=== PATIENT | female | born 1945 | race Caucasian/White ===

== ENCOUNTER → 2020-12-02 16:00 | Outpatient (CLI) | payer MEDICARE, OTHER, MEDICAID, SELFPAY ==
--- NOTE | ~2020-12-02 | XR_ITS ---
XR ankle LT 2V DATE: 12/02/2020 16:54 INDICATION: Left ankle pain TECHNIQUE: AP and crosstable lateral views COMPARISON: None FINDINGS: There is a plate and screws along the distal fibular shaft and lateral malleolus as well as a screw extending through the long axis of the medial malleolus into the distal tibial metaphysis. No recent fracture or dislocation. Ankle mortise appears intact. Generalized soft tissue swelling. Plantar and posterior calcaneal enthesopathy. IMPRESSION: Generalized soft tissue swelling. Status post ORIF old medial and lateral malleolar fractures Calcaneal enthesopathy Reviewed, dictated and finalized at location A.
--- NOTE | ~2020-12-02 | XR_ITS ---
XR knee RT 2V DATE: 12/02/2020 16:54 INDICATION: Right knee pain TECHNIQUE: AP and crosstable lateral views of right knee COMPARISON: None FINDINGS: Status post right total knee arthroplasty with patellar resurfacing. No fracture or dislocation or joint effusion. There is osteopenia. No periosteal reaction or bone guru truction. IMPRESSION: Status post right total knee arthroplasty with patellar resurfacing Reviewed, dictated and finalized at location A.
--- NOTE | ~2020-12-02 | XR_ITS ---
XR cervical spine 4-5V DATE: 12/02/2020 16:54 INDICATION: Neck pain TECHNIQUE: AP, open-mouth, lateral, swimmer's and flexion and extension lateral views COMPARISON: None FINDINGS: There is prominent diffuse osteopenia. There is mild degenerative disc disease at C4-5. There is severe degenerative disc disease at C5-6, moderately severe degenerative disc disease and mi ld anterior subluxation at C6-7. There is very prominent degenerative change at the apophyseal and uncovertebral joints throughout the cervical spine. No cervical instability is evident. No fracture or dislocation or locked facet or prevertebral soft t issue swelling. IMPRESSION: Prominent osteopenia Cervical prominent spondylosis Reviewed, dictated and finalized at location A.
--- NOTE | ~2020-12-02 | XR_ITS ---
XR knee LT 2V DATE: 12/02/2020 16:54 INDICATION: Left knee pain TECHNIQUE: AP and crosstable lateral views COMPARISON: None FINDINGS: There is diffuse osteopenia. No fracture or dislocation, periosteal reaction or bone destruction, radiopaque intra-articular loose body or chondrocalcinosis. Small knee joint effusion is suggested. There is tricompartment osteoarthritis, most severe at the medial compartment with severe joint space narrowing and very prominent particular spurring. Lateral compartment joint space is relatively pres erved, with mild periarticular spurring. There is mild periarticular spurring at the patellofemoral j oint. 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 IMPRESSION: Tricompartment osteoarthritis, particularly severe at the medial co mpartment Diffuse osteopenia Possible small joint effusion
== END ==
PROVIDERS: PCP Internal Medicine; Visit Provider Nurse Practitioner Family
DX: M25.561 Pain in right knee (principal); M85.88 Other specified disorders of bone density and structure, other site; M17.12 Unilateral primary osteoarthritis, left knee; M77.32 Calcaneal spur, left foot; M79.89 Other specified soft tissue disorders
CPT/HCPCS: 72050; 73560; 73600

== ENCOUNTER 2022-03-23 17:03 | Outpatient (NON) | payer MEDICARE, SELFPAY ==
[2022-03-23 17:52] LABS: Basophils Absolute Auto 0.03 K/mm3 (0.00-0.10); Basophils Percent Auto 0.4 % (0.0-1.0); Eosinophils Absolute Auto 0.06 K/mm3 (0.02-0.50); Eosinophils Percent Auto 0.8 % (1.0-6.0); Hematocrit 33.9 % (35.0-42.0); Hemoglobin 11.1 g/dL (11.7-13.8); Immature Granulocyte Absolute 0.07 K/mm3 (0.00-0.00); Lymphocytes Absolute Auto 0.42 K/mm3 (1.10-4.50); Lymphocytes Percent Auto 5.9 % (18.0-42.0); Mean Corpuscular HGB Conc 32.7 g/dL (32.0-36.0); Mean Corpuscular Hemoglobin 29.1 pg (27.0-31.0); Mean Corpuscular Volume 88.7 fL (78.0-102.0); Mean Platelet Volume 11.2 fl (9.2-11.8); Monocytes Absolute Auto 0.48 K/mm3 (0.10-0.90); Monocytes Percent Auto 6.8 % (2.0-11.0); Neutrophils Percent Auto 85.1 % (50.0-70.0); Platelet Count Result 206 K/mm3 (150-420); Red Blood Count 3.82 M/mm3 (4.20-5.40); Red Cell Distribution Width 14.6 % (11.6-14.4); White Blood Count 7.1 K/mm3 (4.8-10.8)
[2022-03-23 17:58] LABS: Creatinine Urine 105.49 mg/dL (40-278); MALB Creatinine Ratio 42.5 mg/g (0-30); Microalbumin Urine Random 44.9 mg/L
[2022-03-23 18:12] LABS: Hemoglobin A1C 6.5 % (<5.7)
[2022-03-23 18:20] LABS: Alanine Aminotransferase 13 U/L (14-59); Albumin Level 3.3 g/dL (3.4-5.0); Alkaline Phosphatase 73 U/L (46-116); Anion Gap 7 mmol/L (8-16); Aspartate Amino Transferase 14 U/L (15-37); Bilirubin,Total 0.3 mg/dL (0.00-1.00); Blood Urea Nitrogen 11 mg/dL (7-18); Calcium 8.6 mg/dL (8.5-10.1); Carbon Dioxide 32 mmol/L (21-32); Chloride 91 mmol/L (98-108); Cholesterol 140 mg/dL (0-200); Estimated Glomerular Filt Rate > 60; Glucose 160 mg/dL (70-99); HDL Direct 84 mg/dL (40-60); LDL Cholesterol Calculated 40 mg/dL (<130); Osmolality Calculated 272 mOsm/kg (285-295); Sodium 130 mmol/L (136-145); Total Protein 6.7 g/dL (6.4-8.2); Triglycerides 80 mg/dL (0-150)
[2022-03-23 18:35] LABS: Thyroid Stimulating Hormone Reflex 1.86 u/IU/mL (0.36-3.74)
[2022-03-28 20:22] LABS: Vitamin D 25 Hydroxy 40 ng/mL (30-100)
== END 2022-03-23 17:04 | disposition home or self-care (01) ==
LOC: CHSLAB 17:11
PROVIDERS: Visit Provider Internal Medicine
DX: E78.5 Hyperlipidemia, unspecified (principal); E11.9 Type 2 diabetes mellitus without complications; E55.9 Vitamin D deficiency, unspecified
CPT/HCPCS: 36415; 80053; 80061; 82043; 82306; 83036; 84443; 85025

== ENCOUNTER 2022-04-24 16:06 | Outpatient (NON) | payer MEDICARE, SELFPAY ==
[2022-04-24 16:15] LABS: Basophils Absolute Auto 0.05 K/mm3 (0.00-0.10); Basophils Percent Auto 0.7 % (0.0-1.0); Eosinophils Absolute Auto 0.04 K/mm3 (0.02-0.50); Eosinophils Percent Auto 0.6 % (1.0-6.0); Hematocrit 37.1 % (35.0-42.0); Hemoglobin 11.8 g/dL (11.7-13.8); Immature Granulocyte Absolute 0.08 K/mm3 (0.00-0.00); Immature Granulocyte Percent A 1.2 % (0.0-0.0); Lymphocytes Absolute Auto 0.64 K/mm3 (1.10-4.50); Lymphocytes Percent Auto 9.3 % (18.0-42.0); Mean Corpuscular HGB Conc 31.8 g/dL (32.0-36.0); Mean Corpuscular Hemoglobin 28.7 pg (27.0-31.0); Mean Corpuscular Volume 90.3 fL (78.0-102.0); Mean Platelet Volume 10.4 fl (9.2-11.8); Monocytes Absolute Auto 0.44 K/mm3 (0.10-0.90); Monocytes Percent Auto 6.4 % (2.0-11.0); Neutrophils Absolute Auto 5.6 K/mm3 (1.7-7.2); Neutrophils Percent Auto 81.8 % (50.0-70.0); Platelet Count Result 246 K/mm3 (150-420); Red Blood Count 4.11 M/mm3 (4.20-5.40); Red Cell Distribution Width 13.6 % (11.6-14.4); White Blood Count 6.9 K/mm3 (4.8-10.8)
[2022-04-24 16:26] LABS: Alanine Aminotransferase 13 U/L (14-59); Albumin Level 3.7 g/dL (3.4-5.0); Alkaline Phosphatase 71 U/L (46-116); Anion Gap 9 mmol/L (8-16); Aspartate Amino Transferase 19 U/L (15-37); Bilirubin,Total 0.3 mg/dL (0.00-1.00); Blood Urea Nitrogen 13 mg/dL (7-18); Calcium 9.4 mg/dL (8.5-10.1); Carbon Dioxide 33 mmol/L (21-32); Chloride 94 mmol/L (98-108); Estimated Glomerular Filt Rate > 60; Glucose 134 mg/dL (70-99); Osmolality Calculated 284 mOsm/kg (285-295); Potassium 3.9 mmol/L (3.5-5.1); Sodium 136 mmol/L (136-145); Total Protein 7.4 g/dL (6.4-8.2)
== END 2022-04-24 16:07 | disposition home or self-care (01) ==
LOC: CHSLAB 16:09
PROVIDERS: Visit Provider Internal Medicine
DX: J96.21 Acute and chronic respiratory failure with hypoxia (principal); I13.0 Hypertensive heart and chronic kidney disease with heart failure and stage 1 through stage 4 chronic kidney disease, or unspecified chronic kidney disease; I50.33 Acute on chronic diastolic (congestive) heart failure; I50.20 Unspecified systolic (congestive) heart failure; D63.1 Anemia in chronic kidney disease; D50.9 Iron deficiency anemia, unspecified
CPT/HCPCS: 36415; 80053; 85025

== ENCOUNTER 2022-05-29 15:11 | Outpatient (NON) | payer MEDICARE, SELFPAY ==
[2022-05-29 15:27] LABS: Basophils Absolute Auto 0.02 K/mm3 (0.00-0.10); Basophils Percent Auto 0.3 % (0.0-1.0); Eosinophils Absolute Auto 0.19 K/mm3 (0.02-0.50); Eosinophils Percent Auto 2.5 % (1.0-6.0); Hematocrit 36.4 % (35.0-42.0); Hemoglobin 11.5 g/dL (11.7-13.8); Immature Granulocyte Percent A 1.3 % (0.0-0.0); Lymphocytes Absolute Auto 0.31 K/mm3 (1.10-4.50); Mean Corpuscular HGB Conc 31.6 g/dL (32.0-36.0); Mean Corpuscular Hemoglobin 28.1 pg (27.0-31.0); Mean Platelet Volume 10.3 fl (9.2-11.8); Monocytes Absolute Auto 0.63 K/mm3 (0.10-0.90); Monocytes Percent Auto 8.2 % (2.0-11.0); Neutrophils Absolute Auto 6.4 K/mm3 (1.7-7.2); Neutrophils Percent Auto 83.7 % (50.0-70.0); Platelet Count Result 194 K/mm3 (150-420); Red Blood Count 4.09 M/mm3 (4.20-5.40); Red Cell Distribution Width 13.3 % (11.6-14.4); White Blood Count 7.7 K/mm3 (4.8-10.8)
[2022-05-29 15:42] LABS: Cholesterol 175 mg/dL (0-200); HDL Direct 106 mg/dL (40-60); LDL Cholesterol Calculated 56 mg/dL (<130); Triglycerides 63 mg/dL (0-150)
[2022-05-29 15:52] LABS: Thyroid Stimulating Hormone Reflex 1.34 u/IU/mL (0.36-3.74)
[2022-05-29 18:06] LABS: Alanine Aminotransferase 16 U/L (14-59); Albumin Level 3.1 g/dL (3.4-5.0); Alkaline Phosphatase 87 U/L (46-116); Anion Gap 8 mmol/L (8-16); Aspartate Amino Transferase 15 U/L (15-37); Bilirubin,Total 0.3 mg/dL (0.00-1.00); Blood Urea Nitrogen 8 mg/dL (7-18); Calcium 8.9 mg/dL (8.5-10.1); Carbon Dioxide 33 mmol/L (21-32); Chloride 89 mmol/L (98-108); Estimated Glomerular Filt Rate > 60; Glucose 172 mg/dL (70-99); Osmolality Calculated 272 mOsm/kg (285-295); Potassium 3.8 mmol/L (3.5-5.1); Sodium 130 mmol/L (136-145)
[2022-06-03 12:33] LABS: Vitamin D 25 Hydroxy 32 ng/mL (30-100)
== END 2022-05-29 15:12 | disposition home or self-care (01) ==
LOC: CHSLAB 15:17
PROVIDERS: Visit Provider Internal Medicine
DX: E78.5 Hyperlipidemia, unspecified (principal); E55.9 Vitamin D deficiency, unspecified
CPT/HCPCS: 36415; 80053; 80061; 82306; 84443; 85025

== ENCOUNTER 2022-08-04 11:24 | Outpatient (NON) | payer MEDICARE, SELFPAY ==
[2022-08-04 11:42] LABS: Basophils Absolute Auto 0.04 K/mm3 (0.00-0.10); Basophils Percent Auto 0.5 % (0.0-1.0); Eosinophils Percent Auto 1.2 % (1.0-6.0); Hematocrit 40.8 % (35.0-42.0); Hemoglobin 13.5 g/dL (11.7-13.8); Immature Granulocyte Absolute 0.18 K/mm3 (0.00-0.00); Immature Granulocyte Percent A 2.1 % (0.0-0.0); Lymphocytes Absolute Auto 0.97 K/mm3 (1.10-4.50); Lymphocytes Percent Auto 11.3 % (18.0-42.0); Mean Corpuscular HGB Conc 33.1 g/dL (32.0-36.0); Mean Corpuscular Hemoglobin 29.2 pg (27.0-31.0); Mean Corpuscular Volume 88.1 fL (78.0-102.0); Mean Platelet Volume 10.8 fl (9.2-11.8); Monocytes Absolute Auto 0.61 K/mm3 (0.10-0.90); Monocytes Percent Auto 7.1 % (2.0-11.0); Neutrophils Absolute Auto 6.7 K/mm3 (1.7-7.2); Neutrophils Percent Auto 77.8 % (50.0-70.0); Platelet Count Result 229 K/mm3 (150-420); Red Blood Count 4.63 M/mm3 (4.20-5.40); Red Cell Distribution Width 13.4 % (11.6-14.4); White Blood Count 8.6 K/mm3 (4.8-10.8)
[2022-08-04 11:55] LABS: Alanine Aminotransferase 13 U/L (14-59); Albumin Level 3.8 g/dL (3.4-5.0); Alkaline Phosphatase 64 U/L (46-116); Anion Gap 5 mmol/L (8-16); Aspartate Amino Transferase 11 U/L (15-37); Bilirubin,Total 0.4 mg/dL (0.00-1.00); Blood Urea Nitrogen 29 mg/dL (7-18); Calcium 9.8 mg/dL (8.5-10.1); Carbon Dioxide 37 mmol/L (21-32); Chloride 92 mmol/L (98-108); Cholesterol 184 mg/dL (0-200); Estimated Glomerular Filt Rate > 60; Glucose 168 mg/dL (70-99); HDL Direct 119 mg/dL (40-60); LDL Cholesterol Calculated 52 mg/dL (<130); Osmolality Calculated 287 mOsm/kg (285-295); Potassium 3.2 mmol/L (3.5-5.1); Sodium 134 mmol/L (136-145); Total Protein 7.4 g/dL (6.4-8.2); Triglycerides 65 mg/dL (0-150)
[2022-08-04 12:03] LABS: Thyroid Stimulating Hormone Reflex 1.22 u/IU/mL (0.36-3.74)
[2022-08-08 20:03] LABS: Vitamin D 25 Hydroxy 40 ng/mL (30-100)
== END 2022-08-04 11:25 | disposition home or self-care (01) ==
LOC: CHSLAB 11:28
PROVIDERS: Visit Provider Internal Medicine
DX: E78.5 Hyperlipidemia, unspecified (principal); E55.9 Vitamin D deficiency, unspecified; J44.1 Chronic obstructive pulmonary disease with (acute) exacerbation; E87.6 Hypokalemia
CPT/HCPCS: 36415; 80053; 80061; 82306; 84443; 85025

== ENCOUNTER 2022-08-15 16:53 | Outpatient (NON) | payer MEDICARE, SELFPAY ==
[2022-08-15 17:49] LABS: Hematocrit 34.5 % (35.0-42.0); Hemoglobin 11.3 g/dL (11.7-13.8); Mean Corpuscular HGB Conc 32.8 g/dL (32.0-36.0); Mean Corpuscular Hemoglobin 29.1 pg (27.0-31.0); Mean Corpuscular Volume 88.9 fL (78.0-102.0); Mean Platelet Volume 11.1 fl (9.2-11.8); Platelet Count Result 193 K/mm3 (150-420); Red Blood Count 3.88 M/mm3 (4.20-5.40); Red Cell Distribution Width 13.3 % (11.6-14.4); White Blood Count 5.1 K/mm3 (4.8-10.8)
[2022-08-15 17:59] LABS: Potassium 5.1 mmol/L (3.5-5.1)
[2022-08-15 18:05] LABS: Hemoglobin A1C 7.6 % (<5.7)
[2022-08-15 18:47] LABS: Band Neutrophils Percent 0 % (0-6); Basophils Percent Manual 0 % (0-1); Eosinophils Absolute Manual 0.05 K/mm3 (0.02-0.5); Eosinophils Percent Manual 1 % (1-6); Lymphocytes Absolute Manual 0.76 K/mm3 (1.1-4.5); Lymphocytes Percent Manual 15 % (18-44); Metamyelocytes Percent 2 %; Monocytes Absolute Manual 0.61 K/mm3 (0.1-0.90); Monocytes Percent Manual 12 % (3-9); Neutrophils Absolute Manual 3.57 K/mm3 (1.7-7.2); Neutrophils Percent Manual 70 % (46-73); Total Cells Counted 100
[2022-08-15 18:48] LABS: Myelocytes Percent 0 %; Platelet Estimate Adequate (Adequate)
== END 2022-08-15 16:54 | disposition home or self-care (01) ==
LOC: CHSLAB 16:55
PROVIDERS: Visit Provider Internal Medicine
DX: E87.6 Hypokalemia (principal); E11.9 Type 2 diabetes mellitus without complications; D64.9 Anemia, unspecified
CPT/HCPCS: 36415; 83036; 84132; 85025